=== PATIENT | female | born 1950 | race Caucasian/White ===

== ENCOUNTER → 2017-06-24 | Outpatient (CLI) | payer MEDICARE, OTHER ==
[~2017-06-24] MED LIST: ALBU90OI INH; ASCO500 PO; ASPI325B PO; ASPI81CH PO; ASPI81EC PO; ATECHL PO; Cipro500 MG PO; ERGO400 PO; GUAI120S1 PO; LOSA50 PO; METF500 PO; METPRE4DP PO; Pyridium200 MG PO
[2017-06-24 14:22] LABS: Alanine Aminotransfer (ALT/SGP 36 U/L (12-78); Albumin, Blood 4.2 g/dL (3.4-5.0); Albumin/Globulin Ratio 1.2 (0.8-1.8); Alk Phos 56 U/L (50-136); Anion Gap 7 mmol/L (6-16); Aspartate Aminotrans (AST/SGOT 23 U/L (12-37); Bilirubin, Total 0.4 mg/dL (0.1-1.0); Blood Urea Nitrogen 12 mg/dL (8-24); Bun/Creatinine Ratio 20.3 (12.0-20.0); CHOL/HDL RATIO 2.5; CO2, Blood 29 mmol/L (21-32); Calcium, Blood 9.2 mg/dL (8.5-10.1); Chloride, Blood 105 mmol/L (98-108); Cholesterol 165 mg/dL (50-200); Creatinine, Blood 0.59 mg/dL (0.40-1.00); Globulin, Blood 3.5 g/dL (2.2-4.0); Glomerular Filtration Rate >60 (60-); Glucose, Blood 98 mg/dL (70-99); HDL Cholesterol 66 mg/dL (>39); LDL/HDL RATIO 1.1; Low Density Lipoprotein Chol 73 mg/dL (0-110); Potassium, Blood 4.2 mmol/L (3.5-5.5); Sodium, Blood 141 mmol/L (136-145); Total Protein, Blood 7.7 g/dL (6.4-8.2); Triglycerides 129 mg/dL (30-160); Very Low Density Lipoprot Chol 25 mg/dL (6-32)
== END | disposition home or self-care (01) ==
LOC: LAB 13:32 → LAB SHORT 13:32
PROVIDERS: Hospitalist
DX: Z12.4 Encounter for screening for malignant neoplasm of cervix (principal); E11.9 Type 2 diabetes mellitus without complications; K62.82 Dysplasia of anus; I10 Essential (primary) hypertension
CPT/HCPCS: 80053; 80061; 82043; 83036; G0145

== ENCOUNTER → 2017-10-01 | Outpatient (CLI) | payer MEDICARE, OTHER ==
[2017-10-04 16:09] LABS: HPV 16 Negative (Negative); HPV 18 Negative (Negative); HPV OTHER HR TYPES Negative (Negative)
== END | disposition home or self-care (01) ==
LOC: LAB 13:53 → LAB SHORT 13:53
PROVIDERS: Hospitalist
DX: R87.610 Atypical squamous cells of undetermined significance on cytologic smear of cervix (ASC-US) (principal)
CPT/HCPCS: 87624; G0123